=== PATIENT | female | born 1955 | race Hispanic/Latino ===

== ENCOUNTER → 2024-04-23 | Day surgery (SDC) | payer OTHER ==
[2024-04-06 12:45] LABS: BASOPHILS % 0.2 % (0.0-1.0); EOSINOPHILS % 0.2 % (0.0-6.0); HEMATOCRIT 40.8 % (34.2-44.1); HEMOGLOBIN 13.4 g/dL (12.0-16.0); LYMPHOCYTES # (AUTO) 1.9 (1.0-3.2); LYMPHOCYTES % 28.1 % (18.0-39.1); MEAN CORPUSCULAR HEMOGLOBIN 29.1 pg (28-32); MEAN CORPUSCULAR HGB CONC 32.8 g/dL (31-35); MEAN CORPUSCULAR VOLUME 88.5 fL (81-99); MONOCYTES # (AUTO) 0.6 (0.2-0.8); MONOCYTES % 9.2 % (4.4-11.3); NEUTROPHILS # (AUTO) 4.1 (2.1-6.9); PLATELET COUNT 219 x10e3/uL (140-360); RED BLOOD COUNT 4.61 x10e6/uL (3.6-5.1); RED CELL DISTRIBUTION WIDTH 14.5 % (11.7-14.4); WHITE BLOOD COUNT 6.62 x10e3/uL (4.8-10.8)
[~2024-04-23] MED LIST: ALBUTEROL0.63 MG/3 NEB; BENICAR20 MG PO; BROMPHENIR-PSE118 ML PO; FAMOTIDINE 20 MG/2 ML VIAL IV ONE; LEVOTHYROXINE50 MCG PO; LIDOCAINE HCL 2% LOCAL INJ 5 ML SDV VIAL INJ ONE; MIDAZOLAM HCL 2 MG/2 ML VIAL ONE; MONTELUKAST SOD10 MG PO; PROPOFOL IV EMULSION 10 MG/ML 20 ML VIAL ONE; SUCRALFATE1 GM PO
[2024-04-23 08:38] VITALS: TEMP 97.6
[2024-04-23 08:50] VITALS: BP 146/84; PULSE 59; RESP 15; O2SAT 96
== END | disposition home or self-care (01) ==
LOC: OR 06:23
PROVIDERS: ATTEND Internal Medicine Gastroenterology
DX: K22.89 Other specified disease of esophagus (principal); K29.50 Unspecified chronic gastritis without bleeding; K31.89 Other diseases of stomach and duodenum; K31.A12 Gastric intestinal metaplasia without dysplasia, involving the body (corpus); K21.9 Gastro-esophageal reflux disease without esophagitis; K76.0 Fatty (change of) liver, not elsewhere classified; R16.0 Hepatomegaly, not elsewhere classified; Z78.9 Other specified health status; I10 Essential (primary) hypertension; J45.909 Unspecified asthma, uncomplicated; E03.9 Hypothyroidism, unspecified; E66.9 Obesity, unspecified; Z01.810 Encounter for preprocedural cardiovascular examination; Z01.812 Encounter for preprocedural laboratory examination; Z79.899 Other long term (current) drug therapy; Z68.29 Body mass index [BMI] 29.0-29.9, adult
CPT/HCPCS: 36415; 43239; 43248; 85025; 88305; 88342; 93005; J2001; J2250; J2704